=== PATIENT | female | born 1980 | race Two or more races ===

== ENCOUNTER 2016-12-28 23:55 | Emergency (ER) | payer SELFPAY ==
[~2016-12-28 23:55] MED LIST: FLEXERIL PO; IBUPROFEN PO; MEDROL PO; VICODIN 5/500 T1 TAB PO
[2016-12-29 00:32] LABS: INFLUENZA A POS (NEG); INFLUENZA B NEG (NEG)
== END 2016-12-29 03:00 | disposition home or self-care (01) ==
LOC: CED 23:55
DX: J10.1 Influenza due to other identified influenza virus with other respiratory manifestations (principal)
CPT/HCPCS: 36415; 87804; 96361; 96374; 99284; J1885